=== PATIENT | female | born 1975 | race Caucasian/White ===

== ENCOUNTER 2024-06-10 07:43 | Observation (INO) | payer OTHER ==
[2024-06-10] MEDS: Sodium Chloride 0.9% 10 ML Syringe FLUSH PRN (08:16)
[2024-06-10] MEDS: Ketorolac 15 MG/ML SDV IVPUSH ONE (08:29)
[2024-06-10] MEDS: Sodium Chloride 0.9% 1,000 ML IV ONE ×2 (08:31→12:58)
[2024-06-10 08:49] LABS: BASOPHILS PERCENT AUTO 0.4 % (0.0-1.0); EOSINOPHILS ABSOLUTE AUTO 0.6 K/mm3 (0.0-0.4); EOSINOPHILS PERCENT AUTO 8.1 % (0.0-6.0); HEMOGLOBIN 12.8 gm/dl (12.0-16.0); IMMATURE GRAN ABSOLUTE AUTO 0.01 K/mm3 (0.00-0.05); IMMATURE GRAN PERCENT AUTO 0.1 % (0.0-0.4); LYMPHOCYTES ABSOLUTE AUTO 2.5 K/mm3 (1.0-4.8); LYMPHOCYTES PERCENT AUTO 33.2 % (24.0-44.0); MEAN CORPUSCULAR HEMOGLOBIN 29.6 pg (28.0-32.0); MEAN CORPUSCULAR HGB CONC 33.7 g/dl (32.0-36.0); MEAN CORPUSCULAR VOLUME 87.8 fl (83.0-99.0); MEAN PLATELET VOLUME 8.3 fl (9.4-12.3); MONOCYTES ABSOLUTE AUTO 0.6 K/mm3 (0.0-0.8); MONOCYTES PERCENT AUTO 7.9 % (0.0-8.0); NEUTROPHILS ABSOLUTE AUTO 3.8 K/mm3 (1.8-7.7); NEUTROPHILS PERCENT AUTO 50.3 % (41.0-71.0); PLATELET COUNT,PLT 281 K/mm3 (150-400); RED BLOOD CELL COUNT 4.33 M/mm3 (4.10-5.30); WHITE BLOOD CELL COUNT,WBC 7.64 K/mm3 (3.9-11.3)
[2024-06-10 09:14] LABS: A/G RATIO 1.1 (1-2); ALBUMIN 3.2 g/dl (3.4-5.0); BILIRUBIN TOTAL 0.3 mg/dL (0.2-1.0); BUN/CREATININE RATIO 17.1 (14-18); CALCIUM 9.1 mg/dL (8.5-10.1); CREATININE 0.7 mg/dL (0.55-1.02); EST CRCL DRUG DOSING (CG) 85.56 mL/min; PROTEIN TOTAL,TP 6.2 g/dl (6.4-8.2)
[2024-06-10 11:06] LABS: APPEARANCE,URINE CLEAR (Clear); BILIRUBIN,URINE NEGATIVE (Negative); COLOR,URINE YELLOW (Yellow); GLUCOSE,URINE NEGATIVE (Negative); KETONES,URINE NEGATIVE (Negative); LEUKOCYTE ESTERASE,URINE NEGATIVE (Negative); NITRITE,URINE NEGATIVE (Negative); OCCULT BLOOD,URINE NEGATIVE (Negative); PROTEIN,URINE NEGATIVE (Negative); UROBILINOGEN,URINE 0.2 (0.2-1.0)
[2024-06-10] MEDS ORDERED: Sennosides/Docusate Sodium 50-8.6 MG Tab PO PRN (13:20)
[2024-06-10] MEDS ORDERED: Acetaminophen 325 MG Tab PO PRN (13:20)
[2024-06-10] MEDS ORDERED: Ondansetron 4 MG/2 ML SDV IV PRN (13:20)
[2024-06-10 13:29] LABS: CHOLESTEROL HDL 56 mg/dL (40-59); CHOLESTEROL LDL DIRECT 102 mg/dL (<100); CHOLESTEROL TOTAL 182 mg/dL (<200); TRIGLYCERIDES 98 mg/dL (<150)
[2024-06-10] MEDS: Lactated Ringers 1,000 ML IV SCH (14:09)
[2024-06-10] MEDS: Ketorolac 15 MG/ML SDV IVPUSH PRN (14:16)
[2024-06-10] MEDS: traMADol 50 MG Tab PO PRN (16:56)
[2024-06-10] MEDS: Melatonin 3 MG Tab PO PRN (23:51)
[2024-06-11 05:30] LABS: HEMATOCRIT 35.1 % (37.0-47.0); HEMOGLOBIN 11.7 gm/dl (12.0-16.0); MEAN CORPUSCULAR HEMOGLOBIN 29.1 pg (28.0-32.0); MEAN CORPUSCULAR HGB CONC 33.3 g/dl (32.0-36.0); MEAN CORPUSCULAR VOLUME 87.3 fl (83.0-99.0); MEAN PLATELET VOLUME 8.9 fl (9.4-12.3); PLATELET COUNT,PLT 251 K/mm3 (150-400); RED BLOOD CELL COUNT 4.02 M/mm3 (4.10-5.30); WHITE BLOOD CELL COUNT,WBC 7.82 K/mm3 (3.9-11.3)
[2024-06-11 05:38] LABS: ANION GAP 10.8 (5-15); BUN/CREATININE RATIO 14.3 (14-18); CALCIUM 8.3 mg/dL (8.5-10.1); CREATININE 0.7 mg/dL (0.55-1.02); EST CRCL DRUG DOSING (CG) 85.56 mL/min; MAGNESIUM 1.7 mg/dL (1.8-2.4); PHOSPHORUS 3.3 mg/dL (2.6-4.7); POTASSIUM,K 3.8 mEq/L (3.5-5.1)
[2024-06-11] MEDS: Enoxaparin 40 MG/0.4 ML Syringe SUBCUT SCH (09:32)
== END 2024-06-11 10:23 | disposition home or self-care (01) ==
LOC: JD.ED 07:43 → JD.MS 12:31
PROVIDERS: ADMIT Student in an Organized Health Care Education/Training Program; ATTEND Student in an Organized Health Care Education/Training Program
DX: K85.90 Acute pancreatitis without necrosis or infection, unspecified (principal); G89.29 Other chronic pain; M54.50 Low back pain, unspecified; D64.9 Anemia, unspecified; F17.210 Nicotine dependence, cigarettes, uncomplicated; Z98.890 Other specified postprocedural states; Z88.1 Allergy status to other antibiotic agents; Z79.899 Other long term (current) drug therapy
CPT/HCPCS: 36415; 74176; 80048; 80053; 80061; 81003; 83690; 83735; 84100; 84703; 85025; 85027; 94760; 96374; 96376; 99284; A9270; G0378; J1885; J3490; J7030; J7120; 99222; 99238; 99285